=== PATIENT | female | born 1960 | race Caucasian/White ===

== ENCOUNTER → 2023-07-08 15:49 | Outpatient (REF) | payer BC, SELFPAY | LOC: WDC 15:49 | PROVIDERS: ATTENDING PHYSICIAN Nurse Practitioner Adult Health; FAMILY PHYSICIAN Physician Assistant | DX: Z12.31 Encounter for screening mammogram for malignant neoplasm of breast (principal) | CPT/HCPCS: 77063; 77067 ==

== ENCOUNTER → 2024-07-08 14:47 | Outpatient (REF) | payer BC, SELFPAY | LOC: WDC 14:47 | PROVIDERS: ATTENDING PHYSICIAN Nurse Practitioner Adult Health; FAMILY PHYSICIAN Physician Assistant | DX: Z12.31 Encounter for screening mammogram for malignant neoplasm of breast (principal) | CPT/HCPCS: 77063; 77067 ==

== ENCOUNTER → 2024-12-07 10:22 | Outpatient (REF) | payer BC, SELFPAY | LOC: EMG 10:22 | PROVIDERS: ATTENDING PHYSICIAN Physician Assistant | DX: R20.0 Anesthesia of skin (principal) | CPT/HCPCS: 95886; 95911 ==